=== PATIENT | female | born 1980 | race Hispanic/Latino ===

== ENCOUNTER 2017-04-28 04:04 | Day surgery (SDC) | payer OTHER, SELFPAY ==
[2017-04-28 04:32] VITALS: BMI 26.2
--- NOTE | 2017-04-28 04:54 | PDOC.EVN ---
Event Note - Event Note Event Note: 04/28/17 @ 0500: L&D Triage HPI: Patient here of Lianne Hay. Patient is 35 weeks and 2 days with c/o contractions for last hour. Good FM, no VB, no LOF. No SWIFT, no visual changes. No trauma. No past HX of PTL. Review of systems: complete review done and negative unless in HPI. All: none Surg: LEEP OB HX: no labor Med Hx: negative Meds: prenatals PHYSICAL EXAM: Vitals reviewed, afebrile. normotensive. NAD Abd soft, gravid Cervix: 1-2/25/-2/Intact Monitors: cat I 130s, irregular contractions on toco Assessment: Threatened PTL at 35 weeks 2 days. Plan: 1. 1-2 carter OBS 2. One shot terb SQ and oral hydration 3. If contractiions persist, will make 23 hour obs and give celestone 4. For now, see if the terb (one shot) alleviates isues
[2017-04-28] MEDS ORDERED: Terbutaline Sulfate 1 MG/ML VIAL SC SCH (05:00)
--- NOTE | 2017-04-28 07:08 | PDOC.EVN ---
Event Note - Event Note Event Note: L&D recheck: cervix is unchanged. Contractions now decreased. Cat 1 strip. Will keep for one more hour and if still stable we will discharge with a DX of threatened PTL arrested at 1-2 cm.
== END 2017-04-28 07:52 | disposition home or self-care (01) ==
LOC: L&D/OP 04:04
PROVIDERS: ATTEND Advanced Practice Midwife
DX: O47.03 False labor before 37 completed weeks of gestation, third trimester (principal); Z79.899 Other long term (current) drug therapy; Z3A.35 35 weeks gestation of pregnancy
CPT/HCPCS: 96372; J3105

== ENCOUNTER 2017-05-18 03:04 | Day surgery (SDC) | payer OTHER ==
[2017-05-18 03:31] VITALS: BMI 28.3
--- NOTE | 2017-05-18 06:59 | PRG ---
DATE OF SERVICE: 05/18/2017 PRIMARY OB: NAVNEET Couch. CHIEF COMPLAINT: Abdominal pains. HISTORY OF PRESENT ILLNESS: The patient is a 36-year-old G4, P3 female with an intrauterine pregnanc y at 38 weeks and 1 day, who has presented with abdominal pains that has been intermittent over the l ast day or so, worsening prior to presenting to the hospital. She denies any leakage of fluid or any vaginal bleeding. She denies any fever, although she has felt under the weather last few days, any diarrhea, constipation, chest pain, shortness of breath, nausea, vomiting. She has had hip pains wit h the . Denies any back pains or knee problems. She denies any leakage of fluid or vaginal bleeding. Denies any urinary urgency. She reports over the last several hours, her contractions tai ve dissipated and become less severe and less frequent since presenting to the hospital. PAST MEDICAL HISTORY: Negative. PAST SURGICAL HISTORY: Negative. OBSTETRIC HISTORY: She has had 3 term deliveries. ALLERGIES: No known drug allergies. MEDICATIONS: vitamins. OB LABORATORY DATA: Unavailable at the time of dictation. REVIEW OF SYSTEMS: Per HPI. PHYSICAL EXAMINATION: VITAL SIGNS: Blood pressure is 111/62, heart rate of 92, respiratory rate of 18, temperature 98.5. GENERAL: She appears to be in no acute distress. She is alert and oriented, and cooperative and ple asant to interact with. HEAD: Normocephalic, atraumatic. LUNGS: Clear to auscultation bilaterally. HEART: Has a regular rate and rhythm. ABDOMEN: Soft and gravid, nontender. EXTREMITIES: Nontender, nonedematous. GENITOURINARY: Per nursing staff, her cervix is unchanged at 350 and -2 station over 2 hours. heart tracing performed for threatened labor and abdominal pain over those 2 hours. Baseline i s in the 130s with moderate long-term variability, positive accelerations, no decelerations. Contrac tions are every 5-7 minutes. ASSESSMENT AND PLAN: The patient is a 36-year-old female with an intrauterine at 38 weeks and a day in latent labor. The patient has been given term precautions and is being discharged home. Fetus has a category 1 tracing.
== END 2017-05-18 06:00 | disposition home or self-care (01) ==
LOC: L&D/OP 03:04
PROVIDERS: ATTEND Obstetrics & Gynecology
DX: O99.89 Other specified diseases and conditions complicating pregnancy, childbirth and the puerperium (principal); R10.9 Unspecified abdominal pain; Z3A.38 38 weeks gestation of pregnancy; Z79.899 Other long term (current) drug therapy

== ENCOUNTER 2017-06-01 16:52 | Inpatient (IN) | payer OTHER ==
[2017-06-01] MEDS ORDERED: LR / Pitocin 40 units/1000 ml 1,000 ML ONE (17:06)
[2017-06-01] MEDS ORDERED: Lidocaine 1% (PF) 30 ML VIAL ONE (17:06)
--- NOTE | 2017-06-01 17:13 | PDOC.LDHP ---
Labor and Delivery H&P Chief complaint: contractions HPI: mckeon for light sool, at 40 wk gbs neg rh positive Due date: 05/31/17 Dating criteria: last menstrual period, first trimester ultrasound Grav: 4 Para: 3 Current complications: none Abnormal US findings: No Current medications: pre- vitamins Allergies/Adverse Reactions: Allergies Allergy/AdvReac Type Severity Reaction Status Date / Time No Known Allergies Allergy Verified 05/18/17 03:32 Social history: none - Physical Exam Vital signs reviewed and normal: yes General: NAD, breathing through contractions Heart: RRR Lungs: nonlabored breathing Abdomen: NTTP Extremeties: no edema FHT: category 1 [place] contractions every: 3 - Vaginal Exam cm dilated: 10 Effacement: 100% Station: 2+ - OB Labs Blood type: A RH: positive Antibody Screen: negative HIV: negative RPR: negative HEPSAg: negative 1 hour GCT: negative GBS: negative Urine drug screen: not done Rubella: immune - Assessment L&D Assessment: term patient in labor - Plan Plan: admit to L&D
[2017-06-01 17:37] VITALS: BMI 28.6
[2017-06-01] MEDS ORDERED: LR / Pitocin 40 units/1000 ml 1,000 ML IV PRN (17:38)
[2017-06-01] MEDS ORDERED: Lactated Ringer's 1,000 ML IV SCH (17:38)
[2017-06-01] MEDS ORDERED: Ibuprofen 800 MG TAB PO PRN (17:38)
[2017-06-01] MEDS ORDERED: Promethazine HCl 25 MG/ML VIAL IM PRN (17:38)
[2017-06-01] MEDS ORDERED: HYDROcodone/Acetaminophen 5/325 mg Tablet PO PRN ×3 (17:38→21:27)
[2017-06-01] MEDS ORDERED: Lidocaine 1% (PF) 30 ML VIAL SC PRN (17:38)
[2017-06-01] MEDS ORDERED: Diphenoxylate HCl/Atropine Tablet PO PRN (17:38)
[2017-06-01] MEDS ORDERED: Ondansetron HCl/PF 4 MG/2 ML Vial IVP PRN ×2 (17:38→21:27)
[2017-06-01] MEDS ORDERED: Carboprost 250 MCG/ML AMP IM PRN (17:38)
[2017-06-01 17:46] LABS: Hemoglobin 13.4 g/dL (12.0-16.0); Mean Corpuscular Hemoglobin 30.8 pg (27.0-31.0); Mean Corpuscular Volume 90.6 fl (81.0-99.0); Mean Platelet Volume 9.7 fL (7.4-10.4); Platelet Count 207 thou/uL (130-400); RBC Distribution Width 13.4 % (11.5-14.5); Red Blood Cell (RBC) Count 4.34 mill/uL (4.20-5.40); White Blood Cell (WBC) Count 13.7 thou/uL (4.8-10.8)
[2017-06-01 18:28] LABS: HBSAg Index 0.25 S/CO (0-0.99); Hep B Surf Ag Non-Reactive S/CO (NonReactive); Syphilis Antibody Nonreactive (Nonreactive); Syphilis Antibody Index 0.04 S/CO (<1.00 Non-Reactive)
[2017-06-01] MEDS ORDERED: Milk Of Magnesia 30 ML UDCUP PO PRN (21:27)
[2017-06-01] MEDS ORDERED: LR / Pitocin 40 units/1000 ml 1,000 ML IV SCH (21:27)
[2017-06-01] MEDS ORDERED: Adacel (T-DAP) 0.5 ML VIAL IM ONE (21:27)
[2017-06-01] MEDS ORDERED: Benzocaine/Menthol 20-0.5% 60 ML CAN TOP PRN (21:27)
[2017-06-01] MEDS ORDERED: Varicella virus, LIVE 0.5 ML VIAL SC ONE (21:27)
[2017-06-01] MEDS ORDERED: Bisacodyl 10 MG SUPP PR PRN (21:27)
[2017-06-01] MEDS ORDERED: Lanolin Ointment 7 GM TUBE TOP PRN (21:27)
[2017-06-01] MEDS ORDERED: Misoprostol 200 MCG TAB VAG SCH (22:00)
[2017-06-01] MEDS ORDERED: Measles/Mumps/Rubella 10 MCG/0.5 ML VIAL SC ONE (22:00)
[2017-06-01] MEDS: Ibuprofen 800 MG TAB PO SCH (23:03)
[2017-06-01] MEDS: Docusate Calcium (SURFAK) 240 MG CAP PO SCH (23:03)
[2017-06-02] MEDS: Ibuprofen 800 MG TAB PO SCH ×3 (02:33→19:32)
[2017-06-02 06:28] LABS: Hemoglobin 11.9 g/dL (12.0-16.0); Mean Corpuscular HGB CONC 33.2 g/dL (32.0-36.0); Mean Corpuscular Hemoglobin 30.5 pg (27.0-31.0); Mean Corpuscular Volume 91.9 fl (81.0-99.0); Mean Platelet Volume 9.3 fL (7.4-10.4); Platelet Count 190 thou/uL (130-400); RBC Distribution Width 13.3 % (11.5-14.5)
[2017-06-02] MEDS: HYDROcodone/Acetaminophen 5/325 mg Tablet PO PRN ×2 (08:06→19:32)
[2017-06-02] MEDS: Ferrous Sulfate 325 MG TAB PO SCH ×2 (08:07→17:41)
[2017-06-02] MEDS: Docusate Calcium (SURFAK) 240 MG CAP PO SCH ×2 (08:10→19:31)
[2017-06-02] MEDS ORDERED: Prenatal Vitamin 1 TAB PO SCH (09:00)
--- NOTE | 2017-06-02 11:17 | PDOC.PP ---
Post Progress Note Post Day #: 1 Subjective: patient is doing well. up to bathroom. baby is nursing, but a little spitty. biggest complaint is her hip and pubic bone pain PO intake tolerated: yes Flatus: yes Ambulation: yes Vital Signs (12 hours) Temp Pulse Resp BP 06/02/17 08:10 98.0 F 70 18 104/62 06/02/17 05:04 98.2 F 76 18 119/69 06/02/17 00:46 98.5 F 66 18 113/63 Weight Weight 168 lb 0.017 oz - Physical Examination General: NAD Cardiovascular: no m/r/g Respiratory: clear to auscultation bilaterally Abdominal: + bowel sounds, lochia (moderate) Fundus firm & at: u-1 Extremities: negative homans (B) Skin: no rash Perineum: intact Neurological: no gross focal deficits Psychiatric: A&Ox3 Result Diagrams: 06/02/17 05:50 Additional Labs: Post Labs Blood Type A POSITIVE 06/01/17 17:14 Hep Bs Antigen Non-Reactive S/CO (NonReactive) 06/01/17 17:14 (1) (spontaneous vaginal delivery) Code(s): O80 - ENCOUNTER FOR FULL-TERM UNCOMPLICATED DELIVERY Status: Acute (2) AMA (advanced maternal age) multigravida 35+ Code(s): O09.529 - SUPERVISION OF ELDERLY MULTIGRAVIDA, UNSPECIFIED TRIMESTER Status: Acute (3) Occiput posterior presentation of fetus Code(s): O64.0XX0 - OBSTRUCTED LABOR DUE TO INCMPL ROTATION OF HEAD, UNSP Status: Acute - Assessment/Plan A: now P4 s/p at 40 weeks and 1 day. NML exam P: discharge homea t 24 hours if infant is discharged.
[2017-06-02 20:02] VITALS: BP 115/76; TEMP 98.1
[2017-06-02] MEDS ORDERED: FLU VACC QS2017-18 36 mo. & older 0.5 ML SYRINGE IM ONE (21:00)
== END 2017-06-02 21:10 | disposition home or self-care (01) | DRG 775 ==
LOC: L&D/OP 16:52 → L&D 17:11 → 3SW 21:14
PROVIDERS: ADMIT Obstetrics & Gynecology; ATTEND Obstetrics & Gynecology
PROC: 10E0XZZ Delivery of Products of Conception, External Approach (ICD-10-PCS; principal; 2017-06-01)
PROC: 4A0HXCZ Measurement of Products of Conception, Cardiac Rate, External Approach (ICD-10-PCS; 2017-06-01)
DX: O64.0XX0 Obstructed labor due to incomplete rotation of fetal head, not applicable or unspecified (principal); O62.3 Precipitate labor; Z37.0 Single live birth; Z3A.40 40 weeks gestation of pregnancy
CPT/HCPCS: 36415; 85027; 86780; 87340; 90715; 99285; J2001

== ENCOUNTER 2019-01-07 16:14 | Outpatient (CLI) | payer OTHER ==
--- NOTE | 2019-01-07 17:02 | ULT ---
EXAM: Left lower extremity venous Doppler HISTORY: Left calf pain for 3 days. 37 weeks . FINDINGS: Grayscale, color-flow, Doppler evaluation, spectral analysis of the left lower extremity venous struc tures is performed with 2-D imaging. The left common femoral, superficial femoral, popliteal, posterior tibial, proximal greater saphenous and profunda femoral veins are imaged. There is normal luminal compressibility, flow, and augmentation in the visualized deep venous structu res of the left lower extremity. IMPRESSION: No evidence of a deep vein thrombosis in the visualized deep venous structures left lower extremity.
== END 2019-01-07 16:15 | disposition home or self-care (01) ==
LOC: ULT 16:14
PROVIDERS: ATTEND Advanced Practice Midwife
DX: M79.662 Pain in left lower leg (principal)

== ENCOUNTER 2019-03-01 02:48 | Day surgery (SDC) | payer OTHER ==
[2019-03-01 03:17] VITALS: BP 112/68; TEMP 98.1; BMI 28.3
[2019-03-01] MEDS ORDERED: hydrALAZINE 20 MG/ML VIAL SLOW IVP PRN (03:32)
[2019-03-01 03:48] LABS: Amnisure Test No Membranes Rupture (No Rupture)
[2019-03-01 03:50] LABS: Amnisure Internal Control QC ACCEPTABLE (ACCEPTABLE)
--- NOTE | 2019-03-01 04:07 | PDOC.FPROB ---
FMR OB H&P: Medications - Current Home Medications: Medication Instructions Recorded Confirmed Type 21/Iron Fu/Folic Acid 1 tablet PO DAILY 04/28/17 03/01/19 History [ Complete Caplet] Ferrous Gluconate [Iron] 240 mg PO DAILY 03/01/19 03/01/19 History Allergies/Adverse Reactions: Allergies Allergy/AdvReac Type Severity Reaction Status Date / Time No Known Allergies Allergy Verified 03/01/19 03:11 FMR OB H&P: Vital Signs - Maternal Vital signs: Vital Signs - First Documented Temp Pulse Resp BP Pulse Ox 98.1 F 84 18 112/68 97 03/01/19 03:10 03/01/19 03:10 03/01/19 03:10 03/01/19 03:10 03/01/19 03:10 FMR OB H&P: Results - Labs Lab results: Laboratory Results - last 24 hr 03/01/19 03:29 Amnio Swab Test No Membranes Rupture FMR OB H&P: A/P - Problem List (1) Current Visit: Yes Status: Acute Discussion: Date/Time: 03/01/19 0405 PCP: bomb. CleveInfiKno HPI: Patient comes in for contractions which started yesterday evening but got stronger and closer together around midnight. States she is currently feeling them every 4 minutes and states she has had some leaking fluid. States she had previously labored in <1 hr so wanted to come to the hospital earlier rather than later with this . She affirms movement Denies SWIFT, visual changes, SOB, or swelling. History: OB hx: x4, term PMH: denies asthma, htn, DM PSH: negative Meds: PNV All: NKDA Soc Hx: denies smoking, alcohol, drugs Fam Hx: denies downs, congenital defects REVIEW OF SYSTEMS: Gen: no fever, chills, or sweats Neuro: no numbness/tingling, no weakness, denies headache ENT: denies congestion Eyes: no visual changes Resp: denies cough, no production, no SOB, no wheeze Card: denies chest pain, no palpitations GI: denies nausea, vomiting, diarrhea : no dysuria, no hematuria Skin: no rash, no erythema Psych: denies hx anxiety/depression Vitals: T: 98.3 R: 18 BP: 112/68 P:81 at: 98% on RA PHYSICAL EXAMINATION: General: NAD, alert and oriented x3 HEENT: EOMI, normal sclera Neck: Supple. Full ROM. Heart/Cardiovascular System: RRR, Cap refill < 3 seconds, no rub, no murmur Lungs/Respiratory System: clear to auscultation bilaterally. No increased work of breathing. Room air. Abdomen/Gastro-Intestinal System: no abdominal tenderness, normal bowel sounds, Gravid Extremities: Warm extremities. No cyanosis or edema. Neuro: No gross deficits appreciated Psychiatry: Awake, Alert and cooperative with exam Skin: no lesions, no rashes Musculoskeletal: Full ROM A/P: This is a 38 yo at 39.2 wks here for labor r/o FHT: 130 baseline, mod variability, no decels, accels present [place]: q3-4 min # [place] multiparity, labor r/o - 3/50/-3 - Will re-check in 2 hours, hx of fast labor will be conservative - Amnisure negative - Low intervention suite, intermittent monitoring
--- NOTE | 2019-03-01 05:39 | PDOC.EVN ---
Event Note - Event Note Event Note: still /-3 after 3 hours patient states she feels contractions have spaced out reviewed return precautions with patient, she feels comfortable going home at this time
== END 2019-03-01 05:45 | disposition home or self-care (01) ==
LOC: L&D/OP 02:48
PROVIDERS: ATTEND Obstetrics & Gynecology
DX: O47.1 False labor at or after 37 completed weeks of gestation (principal); O09.43 Supervision of pregnancy with grand multiparity, third trimester; O09.523 Supervision of elderly multigravida, third trimester; Z3A.39 39 weeks gestation of pregnancy; Z79.899 Other long term (current) drug therapy
CPT/HCPCS: 84112

== ENCOUNTER 2019-03-06 04:55 | Inpatient (IN) | payer OTHER ==
[2019-03-06 05:25] VITALS: BMI 28.6
[2019-03-06] MEDS ORDERED: Lidocaine 1% (PF) 30 ML VIAL ONE (05:56)
[2019-03-06] MEDS ORDERED: NS / Oxytocin 40 units/1000ml 1,000 ML ONE ×2 (05:56→10:20)
[2019-03-06 06:01] LABS: Hemoglobin 12.5 g/dL (12.0-16.0); Mean Corpuscular HGB CONC 33.9 g/dL (32.0-36.0); Mean Corpuscular Hemoglobin 29.6 pg (27.0-31.0); Mean Corpuscular Volume 87.4 fL (78.0-98.0); Mean Platelet Volume 8.8 fL (7.4-10.4); Platelet Count 222 thou/uL (130-400); RBC Distribution Width 13.2 % (11.5-14.5); Red Blood Cell (RBC) Count 4.23 mill/uL (4.20-5.40)
[2019-03-06 06:42] LABS: HBSAg Index 0.18 S/CO (0-0.99); Hep B Surf Ag Non-Reactive S/CO (NonReactive)
[2019-03-06 06:43] LABS: Syphilis Antibody Nonreactive (Nonreactive); Syphilis Antibody Index 0.05 S/CO (<1.00 Non-Reactive)
--- NOTE | 2019-03-06 07:36 | PDOC.LDHP ---
Labor and Delivery H&P Chief complaint: contractions HPI: Started priscila around 3 am, they woke her up. she started having bloody show. Her contractions were every 5 minutes. Current gestational age (weeks): 40 Due date: 03/06/19 Grav: 5 Para: 4 OB History Details: x 4 Current complications: other (Advanced maternal Age) Abnormal US findings: No Past Medical History: LEEP pap NML in 2018 Current medications: pre-luz marina vitamins Previous surgical history: other (LEEP) Allergies/Adverse Reactions: Allergies Allergy/AdvReac Type Severity Reaction Status Date / Time No Known Allergies Allergy Verified 03/06/19 05:25 Social history: none - Physical Exam Vital signs reviewed and normal: yes General: breathing through contractions Heart: RRR Lungs: nonlabored breathing Abdomen: gravid FHT: category 1 - Vaginal Exam cm dilated: 7 Effacement: 75% Station: -2 - OB Labs Blood type: A RH: positive Antibody Screen: negative HIV: negative RPR: negative HEPSAg: negative 1 hour GCT: negative GBS: negative Urine drug screen: negative Rubella: immune - Assessment L&D Assessment: term patient in labor - Plan Plan: admit to L&D -: anticipate
[2019-03-06] MEDS ORDERED: NS / Oxytocin 40 units/1000ml 1,000 ML IV SCH ×2 (08:00→10:18)
[2019-03-06] MEDS ORDERED: Methylergonovine 0.2 MG/ML VIAL IM PRN (08:00)
[2019-03-06] MEDS ORDERED: HYDROcodone/Acetaminophen 5/325 mg Tablet PO PRN ×4 (08:00→10:18)
[2019-03-06] MEDS ORDERED: Diphenoxylate HCl/Atropine Tablet PO PRN (08:00)
[2019-03-06] MEDS ORDERED: NS w/ Oxytocin 10 units 500 ML IV SCH ×2 (08:00)
[2019-03-06] MEDS ORDERED: Ibuprofen 800 MG TAB PO PRN (08:00)
[2019-03-06] MEDS ORDERED: Lidocaine 1% (PF) 30 ML VIAL SC PRN (08:00)
[2019-03-06] MEDS ORDERED: Misoprostol 200 MCG TAB RC PRN (08:00)
[2019-03-06] MEDS ORDERED: Carboprost 250 MCG/ML AMP IM PRN (08:00)
[2019-03-06] MEDS ORDERED: Promethazine HCl 25 MG/ML VIAL IM PRN (08:02)
[2019-03-06] MEDS ORDERED: Acetaminophen 500 MG TAB PO PRN (08:02)
[2019-03-06] MEDS ORDERED: Lactated Ringer's 1,000 ML IV SCH (08:02)
[2019-03-06] MEDS ORDERED: Ondansetron PF 4 MG/2 ML Vial IVP PRN ×2 (08:02→10:18)
[2019-03-06] MEDS ORDERED: hydrALAZINE 20 MG/ML VIAL SLOW IVP PRN ×2 (08:02→10:18)
[2019-03-06] MEDS ORDERED: Butorphanol Tartrate 1 MG/ML VIAL SLOW IVP PRN (08:02)
[2019-03-06] MEDS ORDERED: Misoprostol 200 MCG TAB VAG PRN (10:18)
[2019-03-06] MEDS ORDERED: Adacel (T-DAP) 0.5 ML SYRINGE IM ONE (10:18)
[2019-03-06] MEDS ORDERED: Milk Of Magnesia 30 ML UDCUP PO PRN (10:18)
[2019-03-06] MEDS ORDERED: Benzocaine-Menthol 82.5 ML CAN TOP PRN (10:18)
[2019-03-06] MEDS ORDERED: Bisacodyl 10 MG SUPP PR PRN (10:18)
--- NOTE | 2019-03-06 10:26 | PDOC.OPDEL ---
OB Operative/Delivery Note Delivery Dr/Surgeon: Frederick Hay Pre-Delivery Diagnosis: active labor Procedure/Post Delivery Dx: spontaneous vaginal delivery Weeks gestation: 40 Anesthesia: none - Findings A Sex: male Weight: 7 lb 10 oz - 1 min: 9 - 5 min: 10 - Additional Findings/Plan Placenta delivered: spontaneous Repaired Obstetrical Laceration: none Estimated blood loss: 350mL Compilations/Other Findings: IM methergine during recovery Post delivery plan: routine recovery
[2019-03-06] MEDS ORDERED: Ibuprofen 800 MG TAB ONE (13:58)
[2019-03-06] MEDS: Ferrous Sulfate 325 MG TAB PO SCH (14:07)
[2019-03-06] MEDS: Ibuprofen 800 MG TAB PO SCH ×2 (14:11→21:40)
[2019-03-06] MEDS: Docusate Calcium (SURFAK) 240 MG CAP PO SCH (21:40)
[2019-03-07] MEDS: Ibuprofen 800 MG TAB PO SCH (05:54)
--- NOTE | 2019-03-07 08:18 | PDOC.PP ---
Post Progress Note Post Day #: 1 Subjective: patient is doing well. ready to go home. Denies pain. will take Motrin OTC at home. Breast and bottle feeding. PO intake tolerated: yes Flatus: yes Ambulation: yes Vital Signs (12 hours) Temp Pulse Resp BP Pulse Ox 03/07/19 07:06 97.6 F 73 12 102/68 99 03/07/19 04:10 98 F 80 14 100/61 03/07/19 00:00 98.2 F 80 16 93/54 L Weight Weight 167 lb - Physical Examination General: NAD Respiratory: non-labored breathing Abdominal: lochia, no distention Fundus firm & at: -3 Extremities: negative homans (B) Skin: no rash Neurological: no gross focal deficits Psychiatric: A&Ox3, normal affect Result Diagrams: 03/06/19 05:49 Additional Labs: Post Labs Blood Type A POSITIVE 03/06/19 05:49 Hep Bs Antigen Non-Reactive S/CO (NonReactive) 03/06/19 05:49 (1) AMA (advanced maternal age) multigravida 35+ Code(s): O09.529 - SUPERVISION OF ELDERLY MULTIGRAVIDA, UNSPECIFIED TRIMESTER Status: Acute (2) (spontaneous vaginal delivery) Code(s): O80 - ENCOUNTER FOR FULL-TERM UNCOMPLICATED DELIVERY Status: Acute - Assessment/Plan A: G5 now P5 s/p at 40 weeks. NML PPD 1 exam P: discharge home today if is discharged
[2019-03-07] MEDS ORDERED: Prenatal Vitamin 1 TAB PO SCH (09:00)
[2019-03-07] MEDS: Docusate Calcium (SURFAK) 240 MG CAP PO SCH (09:34)
[2019-03-07] MEDS: Ferrous Sulfate 325 MG TAB PO SCH (09:34)
[2019-03-07 11:39] VITALS: BP 104/62; TEMP 98.8
== END 2019-03-07 11:40 | disposition home or self-care (01) | DRG 807 ==
LOC: L&D/OP 04:55 → L&D 05:34 → 3SE 11:40
PROVIDERS: ADMIT Obstetrics & Gynecology; ATTEND Obstetrics & Gynecology
PROC: 10E0XZZ Delivery of Products of Conception, External Approach (ICD-10-PCS; principal; 2019-03-06)
DX: O72.1 Other immediate postpartum hemorrhage (principal); Z37.0 Single live birth; Z3A.40 40 weeks gestation of pregnancy
CPT/HCPCS: 36415; 85027; 86780; 86850; 86900; 86901; 87340; J2001; J2210